=== PATIENT | female | born 1995 | race African-American/Black ===

== ENCOUNTER → 2022-02-21 | Outpatient (CLI) | payer BC ==
[2022-02-21 15:32] LABS: Urine Bacteria FEW /hpf (None Seen); Urine Blood 2+ /uL (Negative); Urine Mucus FEW (None Seen); Urine Specific Gravity 1.025 (1.001-1.035); Urine WBC 7 /hpf (0 - 5)
[2022-02-21 15:54] LABS: Ferritin 27.3 ng/mL (10-322); Free T4 (Free Thyroxine) 0.9 ng/dL (0.89-1.76); T3 Total 0.96 ng/mL (0.60-1.81)
[2022-02-21 16:11] LABS: % Iron Saturation 9.8 % (15-50)
== END | disposition home or self-care (01) ==
LOC: LAB 15:08
PROVIDERS: ATTEND Internal Medicine Nephrology
DX: D64.9 Anemia, unspecified (principal); E03.9 Hypothyroidism, unspecified; R31.9 Hematuria, unspecified
CPT/HCPCS: 36415; 81001; 82728; 83540; 83550; 84439; 84443; 84480; 87086

== ENCOUNTER → 2022-10-16 | Outpatient (CLI) | payer BC ==
[2022-10-16 11:59] LABS: Basophils # (auto) 0 10 ^3/uL (0-0.2); Eosinophils # (auto) 0.1 10 ^3/uL (0-0.8); Eosinophils % (auto) 0.8 % (0.0-7.0); Hemoglobin 11.8 g/dL (12.2-16.2); Lymphocytes # (auto) 2.3 10 ^3/uL (0.4-5.4); Red Cell Distribution Width 15.9 % (11.8-14.3)
[2022-10-16 12:03] LABS: Basophils % (auto) 0.3 % (0.0-2.0); Hematocrit 38.2 % (36.0-46.0); Lymphocytes % (auto) 22.2 % (10.0-50.0); Mean Corpuscular Hemoglobin 21.3 pg (28.0-32.0); Mean Corpuscular Hgb Conc. 30.9 g/dL (32.0-36.0); Monocytes # (auto) 0.6 10 ^3/uL (0-1.3); Monocytes % (auto) 5.6 % (0.0-12.0); Neutrophils # (auto) 7.4 10 ^3/uL (1.6-8.6); Neutrophils % (auto) 71.1 % (37.0-80.0); Red Blood Cells 5.54 10^6/uL (4.0-5.20); White Blood Cell 10.4 10^3/uL (4.4-10.8)
[2022-10-16 13:11] LABS: Potassium 3.8 mmol/L (3.5-5.1)
[2022-10-16 13:18] LABS: Albumin 3.4 g/dL (3.4-5.0); BUN/Creatinine Ratio 11.4; Bilirubin, Total 0.3 mg/dL (0.2-1.0); Calcium 9.2 mg/dL (8.5-10.1)
[2022-10-16 13:20] LABS: Total Protein 7.8 g/dL (6.4-8.2)
== END | disposition home or self-care (01) ==
LOC: LAB 11:13
PROVIDERS: ATTEND Dermatology
DX: B35.1 Tinea unguium (principal)
CPT/HCPCS: 36415; 80053; 82306; 85025

== ENCOUNTER 2025-03-15 15:37 | Outpatient (CLI) | payer BC ==
[2025-03-15 16:02] LABS: Hematocrit 40.2 % (36.0-46.0); Hemoglobin 12.5 g/dL (12.2-16.2); Mean Corpuscular Hemoglobin 21.5 pg (28.0-32.0); Mean Corpuscular Volume 69.1 fL (80.0-100.0); Nucleated Red Blood Cells % 0.0 %
[2025-03-15 16:15] LABS: Alanine Aminotransferase 14 U/L (7-40); Albumin 4.4 g/dL (3.2-4.8); Alkaline Phosphatase 98 U/L (46-116); Anion Gap 6 (5-15); BUN/Creatinine Ratio 10.6 (10.0-20.0); Bilirubin, Total 0.4 mg/dL (0.2-1.0); Blood Urea Nitrogen 11 mg/dL (9-23); Calcium 9.9 mg/dL (8.7-10.4); Carbon Dioxide 27 mmol/L (20-31); Chloride 107 mmol/L (98-107); Cholesterol 182 mg/dL (< 200); Glucose 90 mg/dL (74-106); HDL Cholesterol 62 mg/dL (40-59); Potassium 4.5 mmol/L (3.5-5.1); Sodium 140 mmol/L (136-145); Total Protein 7.7 g/dL (5.7-8.2); Triglycerides 71 mg/dL (< 150)
== END 2025-03-15 17:00 | disposition home or self-care (01) ==
LOC: LAB 15:37
PROVIDERS: ATTEND Internal Medicine
DX: R73.03 Prediabetes (principal); E66.01 Morbid (severe) obesity due to excess calories; D50.9 Iron deficiency anemia, unspecified; Z13.1 Encounter for screening for diabetes mellitus; Z00.01 Encounter for general adult medical examination with abnormal findings
CPT/HCPCS: 36415; 80053; 80061; 83036; 84439; 84443; 85025